=== PATIENT | female | born 1950 | race Caucasian/White ===

== ENCOUNTER → 2019-06-27 | Outpatient (CLI) | payer MEDICARE, OTHER | LOC: M.MRI 13:59 | DX: M17.11 Unilateral primary osteoarthritis, right knee (principal); M25.461 Effusion, right knee; M25.861 Other specified joint disorders, right knee ==

== ENCOUNTER 2019-08-07 06:39 | Observation (INO) | payer MEDICARE, OTHER ==
[2019-08-02 10:22] LABS: HEMATOCRIT 38.7 % (37.0-47.0); HEMOGLOBIN 13.1 gm/dL (12.0-15.0); MCH 32.6 pg (26.0-34.0); MCHC 33.7 g/dL (28.0-37.0); MCV 96.8 fL (80.0-100.0); MPV 7.4 fl. (7.2-11.1); RDW-CV 14.3 % (10.5-14.5); WBC 7.7 thou/uL (4.0-11.0)
[2019-08-02 10:29] LABS: INR 0.9; PROTIME 9.7 Seconds (9.20-11.50)
[2019-08-02 10:37] LABS: ALBUMIN 3.6 g/dL (3.4-5.0); CALCIUM 8.3 mg/dL (8.5-10.1); POTASSIUM 4.2 mmol/L (3.5-5.1); TOTAL BILIRUBIN 0.4 mg/dL (<0.1-1.0); TOTAL PROTEIN 7.5 g/dL (6.4-8.2)
[2019-08-02 10:54] LABS: URINE BLOOD NEGATIVE (Negative); URINE CLARITY CLEAR; URINE COLOR YELLOW; URINE GLUCOSE-RANDOM NEGATIVE (Negative); URINE KETONES NEGATIVE (Negative); URINE LEUKOCYTES-REFLEX NEGATIVE (Negative); URINE NITRITE-REFLEX NEGATIVE (Negative); URINE PROTEIN NEGATIVE (Negative); URINE SPECIFIC GRAVITY >= 1.030 (1.005-1.030); URINE UROBILINOGEN 0.2 E.U./dl (0.2-1.0)
[2019-08-02 10:57] LABS: ICTOTEST (BILI CONFIRMATORY) Negative (Negative); URINE BILIRUBIN 1+ (Negative)
[2019-08-03 02:08] LABS: GLYCOHEMOGLOBIN (HGB A1C) 6.8 % (4.8-5.6)
[~2019-08-07] VITALS: Ht 165.1 cm; Wt 106.6 kg
[~2019-08-07 06:39] MED LIST: ESTRACE0.5 MG PO; LISINOPRIL-HCT1 EAC1 PO; PROVERA2.5 MG PO; SERTRALINE HCL100 MG PO
[2019-08-07 10:36] VITALS: BP 145/75
[2019-08-07 15:17] VITALS: BP 112/52
--- NOTE | 2019-08-07 15:52 | NUR ---
PT ADMITTED FROM SURGERY. PT ALERT AND ORIENTED. PT RESTING IN BED. PT MALFUNCITONING WITH PLUG IN, WORK ORDER PLACED. PT EDUCATED ON STAYING IN BED, ALL BED RAILS UP ON BED FOR PRECAUTIONS. CAPNO SET UP, BUT STATED CO2 MALFUNCTION, RESPIRATORY NOTIFIED, FREQUENT MONITORING OF PATIENT. FLUIDS SET UP PER ORDERS. PT DENIES ANY NEEDS AT THIS TIME. FALL RISK PRECAUTIONS IN PLACE. WILL CONTINUE TO MONITOR.
[2019-08-07 16:51] VITALS: BP 112/52
[2019-08-07 16:53] VITALS: BP 112/52
[2019-08-07] MEDS ORDERED: OXYCODONE HCL 55 MG PO (16:56)
[2019-08-07] MEDS ORDERED: COLACE 100 MG100 MG PO (16:58)
--- NOTE | 2019-08-07 17:26 | NUR ---
PT REMAINED ALERT AND ORIENTED. PT VOIDED. PT UP TO CHAIR. PT DENIES ANY NEEDS OR PAIN AT THIS TIME. FALL RISK PRECAUTIONS IN PLACE. HOURLY ROUNDING COMPLETED. HEMOVAC DRAINED. WILL CONTINUE TO MONITOR.
[2019-08-07 20:00] VITALS: BP 115/50
[2019-08-08] VITALS (8 sets, daily range): BP systolic 102–122; BP diastolic 41–60
--- NOTE | 2019-08-08 04:46 | NUR ---
PATIENT HAS REMAINED ALERT AND ORIENTED X 4 THROUGHOUT THE SHIFT AND RESTING AT INTERVALS ON HOURLY ROUNDS. UP TO BR TO VOID WITH STEADY GAIT, WALKER AND GAIT BELT. ADEQUATE INTAKE AND OUTPUT. MEDICATED X 2 FOR PAIN TO GOOD EFFECT. DRESSING RIGHT KNEE CLEAN AND DRY WITH PATENT HEMOVAC. CPM INITIATED AT HS AND PATIENT TOLERATED WELL. VITAL SIGNS STABLE. CONTINUE TO MONITOR.
--- NOTE | 2019-08-08 06:00 | NUR ---
HEMOVAC DISCONTINUED PER ORDER WITHOUT DIFFICULTY.
[2019-08-08 08:10] LABS: HEMATOCRIT 30.6 % (37.0-47.0); HEMOGLOBIN 10.6 gm/dL (12.0-15.0)
[2019-08-08 08:36] LABS: CALCIUM 7.9 mg/dL (8.5-10.1); MAGNESIUM 1.8 mg/dL (1.8-2.4); PHOSPHORUS* 2.7 mg/dL (2.5-4.9); POTASSIUM 4.2 mmol/L (3.5-5.1)
--- NOTE | 2019-08-08 09:41 | NUR ---
RECIEVED O.T. ORDERS. WILL DEFER TO P.T. AT THIS TIME. PLEASE ORDER FURTHER O.T. SERVICES IF NEEDED.
[2019-08-08] MEDS ORDERED: XARELTO10 M1 PO (10:32)
--- NOTE | 2019-08-08 10:33 | NUR ---
Nutrition: Dietary called with pt c/o too many CHOs on tray. RD spoke with pt about CHO counting, pt limits herself to 35g per meal, and our meals are ~60g. Decided to change her to CHO controlled diet. Also, provided pt with CHO control menu and alternative choices on back. Pt satisfied.
--- NOTE | 2019-08-08 12:15 | NUR ---
Pt is A&O. Resides at home with her . Normally active and independent. Pt has a walker at home, but PT recommending a FWW, CM faxed order to [facility], they will dispense at nm. Plan home with [facility] for 2 weeks, then possibly outpt therapy. No hx of SNF. Pt to dc later today. CM to fax HH orders once received.
--- NOTE | 2019-08-08 15:26 | NUR ---
PT GIVEN DISCHARGE INFORMATION, CARE NOTES, AND PRESCRIPTIONS. IV REMOVED. WALKER DISPENSES. PT DENIED ANY QUESTIONS OR CONCERNS AT THIS TIME. FALL RISK PRECAUTIONS IN PLACE. HOURLY ROUNDING COMPLETED. PT LEFT VIA WHEELCHAIR WITH NURSING STAF TO HOME WITH HOME HEALTH.
--- NOTE | 2019-08-08 21:23 | OP ---
[address] [address] OPERATIVE REPORT Name: MEAGAN JIN Room: [address] Lizbeth#: [id number] Admission: 08/07/19 Attend Phys: Moni Michael Discharge: 08/08/19 Date of : 52 Report #: [id number] THIS REPORT FOR: //name// cc: Catarina Mccurdy MD, Pamela MD ~ THIS REPORT FOR: //name// CC: Catarina Castro DATE OF SERVICE: 08/07/2019 PREOPERATIVE DIAGNOSIS: Right knee osteoarthritis. POSTOPERATIVE DIAGNOSIS: Right knee osteoarthritis. PROCEDURE: Right total knee arthroplasty. SURGEON: Isaak Snyder II, DO. MARKETING TEACHER: BANDAR Ghosh. ANESTHESIA: General endotracheal. ESTIMATED BLOOD LOSS: 50 mL. ANTIBIOTICS: Ancef preoperatively. DRAINS: Medium Hemovac. COMPLICATIONS: None. CONDITION OF THE PATIENT: Stable to recovery room. IMPLANTS: Listed in operative record and progress note. BRIEF HISTORY: The patient was seen in the preoperative area. Preoperative H and P was performed. Site was marked, questions were answered. Risks and benefits were discussed with the patient in detail about surgery. The patient wished to proceed, assuming all risks. DESCRIPTION OF PROCEDURE: The patient was taken to the operative suite and placed supine on the operative table, given appropriate anesthesia. A well-padded tourniquet was applied to upper thigh, which was inflated to 300 mmHg after gravity exsanguination. The operative knee was sterilely [place] [address] OPERATIVE REPORT Name: MEAGAN JIN Room: [address] Veronica.#: [id number] Admission: 08/07/19 Attend Phys: Moni Michael Discharge: 08/08/19 Date of : 52 Report #: [id number] draped. Surgery began by midline incision. This was carried down to the subcutaneous tissues. A medial parapatellar arthrotomy was performed and carried down to bone. Patella was then everted and excess soft tissues were removed from around the femur. Femoral cutting block was then applied, checked with drop gladys for rotational alignment, pinned in appropriate position and appropriate cuts were made. A 4-in-1 cutting block was then applied, checked for rotational alignment in appropriate position and appropriate cuts were made. The tibia was then exposed. The excess meniscus was removed. Retractors were placed along collateral ligaments. The tibial cutting block was then applied, pinned in appropriate position, checked with drop gladys for rotational alignment and slope and appropriate cut was made. The tibial bone was removed. The tibial baseplate was then pinned into appropriate position. The femur was then applied and box cut was reamed. This was then trialed with the appropriate spacer, which showed excellent fit and fill and excellent stability of the knee throughout all range of motion. The patella was reamed in appropriate fashion and sized to appropriate size. Three peg holes were drilled and it was then trialed and showed excellent flexion, extension, excellent tracking of the patella within the groove. These trials were removed. The tibia was punched in appropriate fashion. Bone ends were cleansed with Pulsavac irrigation and cement was then applied to final implants. These were then malleted into position and held the knee in extension and compressed to allow cement to cure. After it cured, excess was removed using a [place] and osteotome. Wound was then copiously irrigated and the final spacer was then malleted into position. The tourniquet was deflated. Hemostasis was obtained with electrocautery. Pain cocktail was injected. PRP gel sprayed to internal aspects of the knee. Medium Hemovac drain was applied. Capsule was closed with #2 FiberWire and #1 Vicryl in [id number] fashion. Skin was closed with 2-0 Vicryl and running 3-0 Monocryl. Dermabond and sterile dressing applied. Rajinder wrap and PolarCare applied. The patient transported to recovery room in stable condition. Counts were correct throughout the procedure. <ELECTRONICALLY SIGNED> By: Isaak Snyder II, DO 08/08/19 [id number] Snyder II, DO /nt
== END 2019-08-08 15:28 | disposition home health service (06) ==
LOC: M.PRE 06:39 → M.3W 09:17 → M.TBA 09:17 → M.PRE 12:00 → M.3W 15:03
PROVIDERS: Family Medicine; Orthopaedic Surgery; ADMIT Internal Medicine; ATTEND Internal Medicine
DX: Z03.818 Encounter for observation for suspected exposure to other biological agents ruled out (principal); M17.11 Unilateral primary osteoarthritis, right knee; E11.9 Type 2 diabetes mellitus without complications; F41.8 Other specified anxiety disorders